=== PATIENT | male | born 1970 | race Caucasian/White ===

== ENCOUNTER 2020-03-06 10:44 | Emergency (ER) | payer MEDICAID ==
[~2020-03-06] VITALS: Ht 177.8 cm; Wt 96.0 kg
[2020-03-06] MEDS ORDERED: KETOROLAC 30MG/ML VIAL IM ONE (11:30)
[2020-03-06 12:38] VITALS: BP 155/89
== END 2020-03-06 12:39 | disposition home or self-care (01) ==
LOC: ER 10:54
DX: S40.011A Contusion of right shoulder, initial encounter (principal); X50.1XXA Overexertion from prolonged static or awkward postures, initial encounter; Y93.72 Activity, wrestling; Y92.89 Other specified places as the place of occurrence of the external cause; R03.0 Elevated blood-pressure reading, without diagnosis of hypertension; E11.9 Type 2 diabetes mellitus without complications
CPT/HCPCS: 73030; 96372; 99283; J1885